=== PATIENT | female | born 1995 | race Caucasian/White ===

== ENCOUNTER 2019-12-06 09:32 | Emergency (ER) | payer OTHER ==
[~2019-12-06] VITALS: Ht 175.2 cm; Wt 55.8 kg
[~2019-12-06 09:32] MED LIST: FLUOXETINE HYDR20 M1 PO; IBUPROFEN600 MG PO; PRISTIQ50 MG PO; TOPIRAMATE50 M2 PO; ZOFRAN ODT4 MG SL
[2019-12-06] MEDS ORDERED: ANTIBIOTIC28.4 GM T (10:02)
[2019-12-06] MEDS ORDERED: SEPTDS PO (10:02)
[2019-12-06] MEDS ORDERED: CEPHALEXIN500 M1 PO (10:02)
== END 2019-12-06 10:10 | disposition home or self-care (01) ==
LOC: ED 09:32
DX: H60.392 Other infective otitis externa, left ear (principal); E05.90 Thyrotoxicosis, unspecified without thyrotoxic crisis or storm; G89.29 Other chronic pain; G43.909 Migraine, unspecified, not intractable, without status migrainosus; Z88.5 Allergy status to narcotic agent; Z86.14 Personal history of Methicillin resistant Staphylococcus aureus infection

== ENCOUNTER 2020-04-15 16:07 | Emergency (ER) | payer OTHER ==
[~2020-04-15] VITALS: Ht 175.2 cm; Wt 54.4 kg
[~2020-04-15 16:07] MED LIST changes: +ANTIBIOTIC28.4 GM T; +CEPHALEXIN500 M1 PO; +SEPTDS PO
[2020-04-15] MEDS ORDERED: AMOXICILLIN500 M2 PO (16:39)
== END 2020-04-15 16:51 | disposition home or self-care (01) ==
LOC: ED 16:07
DX: H65.92 Unspecified nonsuppurative otitis media, left ear (principal); Z88.6 Allergy status to analgesic agent